=== PATIENT | female | born 1985 | race Caucasian/White ===

== ENCOUNTER 2016-12-11 14:05 | Outpatient (CLI) | payer OTHER ==
[~2016-12-11] VITALS: Ht 172.7 cm; Wt 79.5 kg
[2016-12-11 14:28] VITALS: BP 134/83
[2016-12-11] MEDS ORDERED: PREN1TAB60 PO (14:37)
[2016-12-11 14:42] LABS: HEMATOCRIT 41.7 % (34.6-47.8); HEMOGLOBIN 14.5 g/dL (11.7-16.4); WHITE BLOOD COUNT 15.6 x10^3/uL (3.4-10)
[2016-12-11 14:53] LABS: ASPARTATE AMINO TRANSFERASE 8 U/L (15-37); BLOOD UREA NITROGEN 9 mg/dL (7-18)
== END 2016-12-11 17:00 | disposition home or self-care (01) ==
LOC: LDOP 14:05
PROVIDERS: ATTEND Obstetrics & Gynecology Maternal & Fetal Medicine
DX: O36.5930 Maternal care for other known or suspected poor fetal growth, third trimester, not applicable or unspecified (principal); O99.513 Diseases of the respiratory system complicating pregnancy, third trimester; O13.3 Gestational [pregnancy-induced] hypertension without significant proteinuria, third trimester; J45.909 Unspecified asthma, uncomplicated; Z3A.37 37 weeks gestation of pregnancy
CPT/HCPCS: 36415; 59025; 80053; 82570; 84156; 84550; 85025; 89060; 99211; G0463; Q0114

== ENCOUNTER 2016-12-13 04:41 | Outpatient (CLI) | payer OTHER ==
[~2016-12-13] VITALS: Ht 172.7 cm; Wt 79.5 kg
[~2016-12-13 04:41] MED LIST: PREN1TAB60 PO
[2016-12-13 05:24] VITALS: BP 127/83
[2016-12-13 05:29] LABS: PATH.CAST-FLAG NOT PRESENT; SPERM-FLAG NOT PRESENT; SRC-FLAG NOT PRESENT; XTAL-FLAG NOT PRESENT; YLC-FLAG NOT PRESENT
== END 2016-12-13 05:45 | disposition home or self-care (01) ==
LOC: LDOP 04:41
PROVIDERS: ATTEND Obstetrics & Gynecology Maternal & Fetal Medicine
DX: O46.93 Antepartum hemorrhage, unspecified, third trimester (principal); O36.5930 Maternal care for other known or suspected poor fetal growth, third trimester, not applicable or unspecified; O99.513 Diseases of the respiratory system complicating pregnancy, third trimester; J45.909 Unspecified asthma, uncomplicated; Z3A.37 37 weeks gestation of pregnancy
CPT/HCPCS: 59025; 81001; 87086; 99211; G0463

== ENCOUNTER 2016-12-13 09:36 | Inpatient (IN) | payer OTHER ==
[~2016-12-13] VITALS: Ht 172.7 cm; Wt 79.5 kg
[2016-12-13 10:35] VITALS: BP 129/79
[2016-12-13 10:52] LABS: AMNI OBC PASS; AMNISURE POSITIVE (NEGATIVE)
[2016-12-13] MEDS ORDERED: D5%-LACTATED RINGERS 1,000 ML IV SCH (10:54)
[2016-12-13] MEDS: LACTATED RINGERS 1,000 ML IV SCH ×4 (10:54→17:55)
[2016-12-13] MEDS ORDERED: OXYTOCIN 30U/ 0.9% NaCL 500ML 500 ML IV ONE (10:54)
[2016-12-13] MEDS ORDERED: ONDANSETRON 2MG/ML, 2ML IVPush PRN (11:00)
[2016-12-13] MEDS ORDERED: FENTANYL PF 100 MCG/2ML IV PRN (11:00)
[2016-12-13] MEDS ORDERED: FENTANYL PF 100 MCG/2ML IVPush PRN (11:00)
[2016-12-13] MEDS ORDERED: CALCIUM CARBONATE 500 MG TAB.CHEW PO PRN ×2 (11:00→18:00)
[2016-12-13] MEDS ORDERED: FENTANYL PF 100 MCG/2ML ONE (11:28)
[2016-12-13 12:20] LABS: HEMATOCRIT 40.5 % (34.6-47.8); HEMOGLOBIN 13.9 g/dL (11.7-16.4); WHITE BLOOD COUNT 17.7 x10^3/uL (3.4-10)
[2016-12-13] MEDS ORDERED: NEWBORN KIT ONE (12:26)
[2016-12-13] MEDS ORDERED: LIDOCAINE/PF 1.5%-EPI 1:200K, 30ML ONE ×2 (12:28→12:30)
[2016-12-13] MEDS ORDERED: FENTANYL/BUPIV./NS/PF 250 ML EPIDCONT ONE ×2 (12:28→12:30)
[2016-12-13] MEDS ORDERED: LIDOCAINE 1%, 20ML ONE ×2 (12:30→15:06)
[2016-12-13 13:36] LABS: DAU SCREEN DISCLAIMER
[2016-12-13] MEDS ORDERED: OXYTOCIN 30U/ 0.9% NaCL 500ML 500 ML IV PRN (14:54)
[2016-12-13] MEDS ORDERED: MISOPROSTOL 200 MCG TABLET ONE (15:06)
[2016-12-13] MEDS ORDERED: OXYTOCIN 30U/ 0.9% NaCL 500ML 500 ML ONE (15:06)
[2016-12-13] MEDS: OXYTOCIN 30U/ 0.9% NaCL 500ML 500 ML IV SCH (17:40)
[2016-12-13] MEDS ORDERED: ACETAMINOPHEN 325 MG TABLET PO PRN (18:00)
[2016-12-13] MEDS ORDERED: ONDANSETRON 2MG/ML, 2ML IV PRN (18:00)
[2016-12-13] MEDS ORDERED: MISOPROSTOL 200 MCG TABLET PR PRN ×2 (18:00→20:00)
[2016-12-13] MEDS ORDERED: METHYLERGONOVINE 0.2 MG/ML IM PRN (18:00)
[2016-12-13] MEDS ORDERED: DIPH,PERTUSS(ACELL),TET VAC/PF NC IM-VACC PRN (18:00)
[2016-12-13] MEDS ORDERED: OXYcodone IR 5MG TABLET PO PRN ×2 (18:00)
[2016-12-13] MEDS ORDERED: BISACODYL 10 MG SUPP PR PRN (18:00)
[2016-12-13] MEDS ORDERED: LIDOCAINE/MPF 2%-EPI 1:200K, 20 ML ONE (19:01)
[2016-12-13] MEDS ORDERED: LACTATED RINGERS 1,000 ML IV SCH (19:09)
[2016-12-13] MEDS ORDERED: FENTANYL/BUPIV./NS/PF 250 ML EPIDCONT SCH (19:09)
[2016-12-13] MEDS ORDERED: EPHEDRINE 50 MG/ML, 1ML IVPush PRN (19:30)
[2016-12-13] MEDS ORDERED: LACTATED RINGERS 1,000 ML IVBOLUS PRN (19:30)
[2016-12-13] MEDS ORDERED: NALOXONE 0.4 MG/ML, 1ML IVPush PRN (19:30)
[2016-12-13] MEDS ORDERED: ONDANSETRON 2MG/ML, 2ML ONE (19:52)
[2016-12-13 21:25] VITALS: BP 125/81
[2016-12-13] MEDS: IBUPROFEN 600 MG TABLET PO PRN (21:50)
[2016-12-13] MEDS: DOCUSATE 100 MG CAPSULE PO PRN (21:51)
[2016-12-13] MEDS: OXYcodone/APAP 5/325MG TABLET PO PRN (21:51)
[2016-12-13 23:55] VITALS: BP 143/94
[2016-12-14 01:00] VITALS: BP 123/71
[2016-12-14 03:25] LABS: HEMATOCRIT 36.2 % (34.6-47.8); HEMOGLOBIN 12.5 g/dL (11.7-16.4); WHITE BLOOD COUNT 17.9 x10^3/uL (3.4-10)
[2016-12-14] MEDS: OXYTOCIN 30U/ 0.9% NaCL 500ML 500 ML IV SCH (03:40)
[2016-12-14 04:47] VITALS: BP 137/70
[2016-12-14] MEDS: PRENATAL VIT/IRON/FA 1 EACH TABLET PO SCH (07:42)
[2016-12-14] MEDS: IBUPROFEN 600 MG TABLET PO PRN ×2 (07:42→17:52)
[2016-12-14] MEDS: OXYcodone/APAP 5/325MG TABLET PO PRN ×4 (07:42→22:17)
[2016-12-14] MEDS: DOCUSATE 100 MG CAPSULE PO PRN ×2 (07:42→22:17)
[2016-12-14 08:30] VITALS: BP 136/92
[2016-12-14 14:30] VITALS: BP 133/95
[2016-12-14 20:00] VITALS: BP 135/84
[2016-12-15] MEDS: IBUPROFEN 600 MG TABLET PO PRN (04:11)
[2016-12-15] MEDS: OXYcodone/APAP 5/325MG TABLET PO PRN ×2 (04:11→09:48)
[2016-12-15 09:30] VITALS: BP 138/90
[2016-12-15] MEDS: PRENATAL VIT/IRON/FA 1 EACH TABLET PO SCH (09:48)
[2016-12-15] MEDS: DOCUSATE 100 MG CAPSULE PO PRN (09:49)
== END 2016-12-15 10:45 | disposition home or self-care (01) | DRG 775 ==
LOC: LDOP 09:36 → LDIP 10:38 → 2NW 20:58
PROVIDERS: ADMIT Obstetrics & Gynecology Maternal & Fetal Medicine; ATTEND Obstetrics & Gynecology Maternal & Fetal Medicine
PROC: 10D07Z6 Extraction of Products of Conception, Vacuum, Via Natural or Artificial Opening (ICD-10-PCS; principal; 2016-12-13)
PROC: 0KQM0ZZ Repair Perineum Muscle, Open Approach (ICD-10-PCS; 2016-12-13)
PROC: 3E0S3BZ Introduction of Anesthetic Agent into Epidural Space, Percutaneous Approach (ICD-10-PCS; 2016-12-13)
PROC: 00HU33Z Insertion of Infusion Device into Spinal Canal, Percutaneous Approach (ICD-10-PCS; 2016-12-13)
PROC: 0T9B70Z Drainage of Bladder with Drainage Device, Via Natural or Artificial Opening (ICD-10-PCS; 2016-12-13)
DX: O36.5930 Maternal care for other known or suspected poor fetal growth, third trimester, not applicable or unspecified (principal); Q21.3 Tetralogy of Fallot; O70.1 Second degree perineal laceration during delivery; O76 Abnormality in fetal heart rate and rhythm complicating labor and delivery; O75.89 Other specified complications of labor and delivery; Z3A.37 37 weeks gestation of pregnancy; Z37.0 Single live birth
CPT/HCPCS: 36415; 80307; 81001; 82803; 84112; 85025; 86850; 86900; 88305; 89060; J2405; J3010; J3490; G0479; J2590; J7120; Q0114